=== PATIENT | male | born 1950 | race Caucasian/White ===

== ENCOUNTER 2020-08-13 14:04 | Emergency (ER) | payer MEDICARE, OTHER ==
--- NOTE | 2020-08-13 15:08 | Diagnostic Imaging Report ---
EXAMINATION: Ribs with PA chest, 5 images. COMPARISON: None. HISTORY: 70-year-old male, chest pain. Fall on left side of chest. FINDINGS: Heart size and mediastinal contours are unremarkable. There is no identified pneumothorax. There is no large pleural effusion. There is no identified focal airspace consolidation. There is no identified left sided rib fracture or significantly displaced right-sided rib fracture. IMPRESSION: 1. No identified rib fracture. 2. No identified acute cardiopulmonary abnormality. Dictated by: Dictated on workstation # [id number]
[2020-08-13] MEDS ORDERED: oxyCODONE/APAP 5/325MG (PERCOCET 5) TABLET PO ONE (15:30)
[2020-08-13] MEDS ORDERED: ACHD5005 PO (15:36)
--- NOTE | 2020-08-13 15:36 | ED General ---
General Chief Complaint: Trauma-Non Activation Stated Complaint: FALL; LT SHOULDER/RIB;HEAD INJ; RT KNEE Nursing Triage Note: Fell down two stairs. No loss of consciousness. Hit head, left shoulder, and right knee. Nursing Sepsis Screen: No Definite Risk Source of Information: Patient History of Present Illness Date Seen by Provider: Aug 13, 2020 Time Seen by Provider: 14:15 Initial Comments Patient is a 70-year-old male who presents with left-sided posterior chest wall pain after slipping down steps and right-sided knee pain. Patient fell down to bottom steps proximately 1 hour prior to ED arrival. He denies hitting his head, dizziness lightheadedness, headache or midline neck pain. Patient is not on anticoagulation therapy. Denies midline neck or back pain. Denies shortness of breath. Pain is worse with palpation and left arm movement. No abdominal pain anterior chest wall tenderness. No other acute symptoms or complaints. Timing/Duration: 1-3 Hours Severity: Moderate Modifying Factors: improves with Other Associated Systoms: Other Allergies and Home Medications Allergies Coded Allergies: prochlorperazine (Verified Allergy, Unknown, 08/13/20) Patient Home Medication List Home Medication List Reviewed: Yes Review of Systems Review of Systems Constitutional: see HPI Respiratory: see HPI Cardiovascular: see HPI Gastrointestinal: see HPI Genitourinary: see HPI Musculoskeletal: see HPI Psychiatric/Neurological: See HPI Hematologic/Lymphatic: See HPI Immunological/Allergic: see HPI All Other Systems Reviewed Negative Unless Noted: Yes Past Ypgjmjy-Mnshej-Uvpnsl Hx Patient Social History Alcohol Use: Denies Use Smoking Status: Never a Smoker 2nd Hand Smoke Exposure: No Recent Infectious Disease Expo: No Recent Hopitalizations: Yes Seasonal Allergies Seasonal Allergies: Yes Past Medical History Respiratory: No Cardiac: Yes High Cholesterol, Hypertension Neurological: No Genitourinary: No Gastrointestinal: No Musculoskeletal: No Endocrine: Yes Diabetes, Non-Insulin dep HEENT: No Cancer: No Psychosocial: No Integumentary: No Physical Exam Vital Signs Vital Signs - First Documented 08/13/20 14:10 Temp 36.5 Pulse 93 Resp 18 B/P (MAP) 164/86 (112) Pulse Ox 99 Capillary Refill : Less Than 3 Seconds Height, Weight, BMI Height: '" Weight: lbs. oz. kg; BMI Method: General Appearance: Moderate Distress HEENT: PERRL/EOMI, Pharynx Normal Neck: Full Range of Motion, Normal Inspection, Non Tender, Supple Respiratory: Chest Non Tender, Normal Breath Sounds, Other (Left upper thoracic posterior/tenderness rib pain. No subcutaneous emphysema or bony crepitus. No midline tenderness) Cardiovascular: Regular Rate, Rhythm, Other (No anterior chest wall tender) Gastrointestinal: Non Tender, Soft Extremity: Other (Abrasion right knee, no deformity. No bony tenderness. Full range of motion) Neurologic/Psychiatric: Alert, Oriented x3, No Motor/Sensory Deficits, military nurse II- XII Norm as Tested Progress/Results/Core Measures Suspected Sepsis Recent Fever Within 48 Hours: No Infection Criteria Present: None New/Unexplained Altered Menta: No Sepsis Screen: No Definite Risk SIRS Temperature: Pulse: 93 Respiratory Rate: 18 Blood Pressure 164 /86 Mean: 112 Results/Orders My Orders Orders - ISABEL JOHNSON DO Ribs/Unilateral With Chest (08/13/20 14:38) Oxycodone/Apap 5/325mg Tablet (Percocet (08/13/20 15:30) Vital Signs/I&O 08/13/20 14:10 Temp 36.5 Pulse 93 Resp 18 B/P (MAP) 164/86 (112) Pulse Ox 99 Capillary Refill : Less Than 3 Seconds Blood Pressure Mean: 112 Departure Communication (Admissions) Left-sided rib series/chest x-ray: No obvious displaced ribs or cardiopulmonary disease per radiology report Reproducible chest wall pain without bony crepitus or subcutaneous emphysema or finding of acute injury on imaging studies. Pain improved with treatment. Recommendations are watchful waiting supportive care with PCP follow-up. Return precautions reviewed. Patient verbalizes understanding agreement discharge instructions prior to departure. Impression Primary Impression: Contusion of rib on left side Disposition: HOME, SELF-CARE Condition: Stable Departure-Patient Inst. Decision time for Depature: 15:35 Referrals: GUNNAR ELLISON MD (PCP/Family) Primary Care Physician Patient Instructions: Contusion (DC) Add. Discharge Instructions: Please take ibuprofen for pain and hydrocodone as needed for additional relief. Avoid strenuous physical activity, bending and heavy lifting. Follow up with your PCP in 7 to 10 days if symptoms persist. Return to the ED if new or worsening symptoms. All discharge instructions reviewed with patient and/or family. Voiced understanding. Scripts Hydrocodone/Acetaminophen (Hydrocodone-Acetamin 5-325 mg) 1 Each Tablet 1 TAB PO Q4H PRN for PAIN-MODERATE (5-7), #20 TAB Prov: ISABEL JOHNSON DO 08/13/20 ISABEL JOHNSON DO Aug 13, 2020 15:36
[2020-08-13 15:45] VITALS: BP 135/74
== END 2020-08-13 15:45 | disposition home or self-care (01) ==
LOC: ER FS 14:08
DX: S20.222A Contusion of left back wall of thorax, initial encounter (principal); S80.211A Abrasion, right knee, initial encounter; Z88.8 Allergy status to other drugs, medicaments and biological substances; W10.8XXA Fall (on) (from) other stairs and steps, initial encounter
CPT/HCPCS: 71101

== ENCOUNTER 2020-08-25 08:00 | Inpatient (IN) | payer MEDICARE, OTHER ==
[~2020-08-25] VITALS: Ht 182.8 cm; Wt 93.7 kg
[~2020-08-25 08:00] MED LIST: ACHD5005 PO
[2020-08-25] MEDS ORDERED: ONDANSETRON 4 MG/2 ML (SDV) Z0FRAN ONE (08:23)
[2020-08-25] MEDS ORDERED: NS IV 1000 ML 1,000 ML ONE (08:23)
[2020-08-25] MEDS ORDERED: ONDANSETRON 4 MG/2 ML (SDV) Z0FRAN IVP ONE (08:30)
[2020-08-25] MEDS ORDERED: NS IV 1000 ML 1,000 ML IV SCH ×3 (08:30→12:00)
--- NOTE | 2020-08-25 08:32 | ED Respiratory ---
General Chief Complaint: Respiratory Problems Stated Complaint: VOMITING BLOOD | SOB Source: patient History of Present Illness Date Seen by Provider: Aug 25, 2020 Time Seen by Provider: 08:20 Initial Comments 70-year-old male presents with shortness of air for the past 3 days. Also states his blood sugars are running high. He is a type II diabetic but not on any medication. Last night he did have an episode of vomiting and presents with some nausea. Denies chest pain, palpitations or irregular heartbeat. Denies swelling of extremities. Denies recent illness, fever or chills or known exposure to COVID-19. Denies abdominal pain, constipation or diarrhea, dark or bloody stools. Allergies and Home Medications Allergies Coded Allergies: atorvastatin (Verified Allergy, Unknown, 08/25/20) prochlorperazine (Verified Allergy, Unknown, 08/13/20) Home Medications Hydrocodone/Acetaminophen 1 Each Tablet, 1 TAB PO Q4H PRN for PAIN-MODERATE (5- 7) Prescribed by: ISABEL JOHNSON on 08/13/20 1536 Patient Home Medication List Home Medication List Reviewed: Yes Review of Systems Review of Systems Constitutional: see HPI; No chills, No fever; malaise; No weakness Respiratory: No cough, No hemoptysis, No orthopnea, No phlegm; short of breath; No stridor, No wheezing Cardiovascular: No chest pain, No edema, No palpitations, No syncope Gastrointestinal: No abdominal pain, No constipation, No diarrhea; nausea, vomiting Genitourinary: No dysuria, No frequency, No hematuria Musculoskeletal: No back pain, No joint pain Skin: No change in color, No rash Psychiatric/Neurological: Denies Headache, Denies Numbness, Denies Paresthesia, Denies Seizure Past Unmtvpg-Elalwz-Vvgtpe Hx Past Med/Social Hx: Reviewed Nursing Past Med/Soc Hx Patient Social History 2nd Hand Smoke Exposure: No Recent Hopitalizations: Yes Seasonal Allergies Seasonal Allergies: Yes Past Medical History Respiratory: No Cardiac: Yes High Cholesterol, Hypertension Neurological: No Genitourinary: No Gastrointestinal: No Musculoskeletal: No Endocrine: Yes Diabetes, Non-Insulin dep HEENT: No Cancer: No Psychosocial: No Integumentary: No Physical Exam Vital Signs - First Documented 08/25/20 08:22 Temp 36.5 Pulse 108 Resp 30 B/P (MAP) 150/84 (106) Pulse Ox 100 O2 Delivery Room Air Capillary Refill : Height: '" Weight: lbs. oz. kg; BMI Method: General Appearance: WD/WN, no apparent distress Eyes: Bilateral Eye Normal Inspection, Bilateral Eye PERRL, Bilateral Eye EOMI HEENT: PERRL/EOMI, normal ENT inspection, TMs normal Neck: non-tender, supple, normal inspection Respiratory: chest non-tender, lungs clear, normal breath sounds, no respiratory distress Cardiovascular: no edema, no gallop, no JVD, tachycardia (sinus tach 105) Gastrointestinal: non tender, soft, no organomegaly, no pulsatile mass Extremities: non-tender, normal inspection, no pedal edema, no calf tenderness Neurologic/Psychiatric: no motor/sensory deficits, alert, normal mood/affect Skin: normal color, warm/dry Lymphatic: no adenopathy Focused Exam Lactate Level 08/25/20 08:38: Lactic Acid Level 5.21*H Lactic Acid Level Laboratory Tests Test 08/25/20 08:38 Lactic Acid Level 5.21 MMOL/L (0.50-2.00) *H Progress/Results/Core Measures Suspected Sepsis SIRS Temperature: Pulse: Respiratory Rate: Laboratory Tests 08/25/20 08:29: White Blood Count 13.5H Blood Pressure / Mean: 08/25/20 08:38: Lactic Acid Level 5.21*H Laboratory Tests 08/25/20 08:29: Creatinine 1.47H, Platelet Count 308, Total Bilirubin 0.3 Results/Orders Lab Results Laboratory Tests Test 08/25/20 08:29 08/25/20 08:38 08/25/20 08:45 Range/Units White Blood Count 13.5 H 4.3-11.0 10^3/uL Red Blood Count 5.97 H 4.35-5.85 10^6/uL Hemoglobin 16.7 13.3-17.7 G/DL Hematocrit 52 40-54 % Mean Corpuscular Volume 88 80-99 FL Mean Corpuscular Hemoglobin 28 25-34 PG Mean Corpuscular Hemoglobin Concent 32 32-36 G/DL Red Cell Distribution Width 14.6 H 10.0-14.5 % Platelet Count 308 130-400 10^3/uL Mean Platelet Volume 11.1 H 7.4-10.4 FL Immature Granulocyte % (Auto) 3 % Neutrophils (%) (Auto) 81 H 42-75 % Lymphocytes (%) (Auto) 13 12-44 % Monocytes (%) (Auto) 2 0-12 % Eosinophils (%) (Auto) 0 0-10 % Basophils (%) (Auto) 0 0-10 % Neutrophils # (Auto) 11.0 H 1.8-7.8 X 10^3 Lymphocytes # (Auto) 1.8 1.0-4.0 X 10^3 Monocytes # (Auto) 0.3 0.0-1.0 X 10^3 Eosinophils # (Auto) 0.0 0.0-0.3 10^3/uL Basophils # (Auto) 0.1 0.0-0.1 10^3/uL Immature Granulocyte # (Auto) 0.4 H 0.0-0.1 10^3/uL Sodium Level 132 L 135-145 MMOL/L Potassium Level 5.1 H 3.6-5.0 MMOL/L Chloride Level 91 L 98-107 MMOL/L Carbon Dioxide Level 7 *L 21-32 MMOL/L Anion Gap 34 H 5-14 MMOL/L Blood Urea Nitrogen 21 H 7-18 MG/DL Creatinine 1.47 H 0.60-1.30 MG/DL Estimat Glomerular Filtration Rate 47 BUN/Creatinine Ratio 14 Glucose Level 542 *H 70-105 MG/DL Calcium Level 10.0 8.5-10.1 MG/DL Corrected Calcium 8.5-10.1 MG/DL Total Bilirubin 0.3 0.1-1.0 MG/DL Aspartate Amino Transf (AST/SGOT) 11 5-34 U/L Alanine Aminotransferase (ALT/SGPT) 18 0-55 U/L Alkaline Phosphatase 79 40-136 U/L Troponin I < 0.30 <0.30 NG/ML Pro-B-Type Natriuretic Peptide 64.6 <75.0 PG/ML Total Protein 8.4 H 6.4-8.2 GM/DL Albumin 4.7 H 3.2-4.5 GM/DL Lipase 30 8-78 U/L Lactic Acid Level 5.21 *H 0.50-2.00 MMOL/L Urine Color YELLOW Urine Clarity CLEAR Urine pH 5.5 5-9 Urine Specific [place] >=1.030 1.016-1.022 Urine Protein 1+ H NEGATIVE Urine Glucose (UA) 3+ H NEGATIVE Urine Ketones 3+ H NEGATIVE Urine Nitrite NEGATIVE NEGATIVE Urine Bilirubin 1+ H NEGATIVE Urine Urobilinogen 0.2 < = 1.0 MG/DL Urine Leukocyte Esterase NEGATIVE NEGATIVE Urine RBC (Auto) 1+ H NEGATIVE Urine RBC 0-2 /HPF Urine WBC RARE /HPF Urine Squamous Epithelial Cells RARE /HPF Urine Crystals NONE /LPF Urine Bacteria NEGATIVE /HPF Urine Casts PRESENT /LPF Urine Hyaline Casts 0-2 H /LPF Urine Mucus NEGATIVE /LPF Urine Culture Indicated NO My Orders Orders - ROVENSTINE,NATHAN L DO Ed Iv/Invasive Line Start (08/25/20 08:26) Cbc With Automated Diff (08/25/20 08:26) Comprehensive Metabolic Panel (08/25/20 08:26) Lactic Acid Analyzer (08/25/20 08:26) Lipase (08/25/20 08:26) Urinalysis (08/25/20 08:26) Troponin I Fs (08/25/20 08:26) Chest 1 View Ap/Pa Only (08/25/20 08:26) Probnp Fs (08/25/20 08:26) Ondansetron Injection (Zofran Injectio (08/25/20 08:30) Ns Iv 1000 Ml (Sodium Chloride 0.9%) (08/25/20 08:30) Ondansetron Injection (Zofran Injectio (08/25/20 08:23) Ns Iv 1000 Ml (Sodium Chloride 0.9%) (08/25/20 08:23) Ekg Tracing (08/25/20 08:29) Ns Iv 1000 Ml (Sodium Chloride 0.9%) (08/25/20 09:15) Medications Given in ED Current Medications Medications Dose Ordered Sig/Maribell Route Start Time Stop Time Status Last Admin Dose Admin Ondansetron HCl 4 mg ONCE ONCE IVP 08/25/20 08:30 08/25/20 08:31 DC 08/25/20 08:33 4 MG Vital Signs/I&O 08/25/20 08:22 Temp 36.5 Pulse 108 Resp 30 B/P (MAP) 150/84 (106) Pulse Ox 100 O2 Delivery Room Air Capillary Refill : ECG Initial ECG Impression Date: Aug 25, 2020 Initial ECG Impression Time: 08:35 Initial ECG Rhythm: S.Tach Initial ECG Intervals: Normal Initial ECG Impression: Normal Departure Communication (Admissions) Time/Spoke to Admitting Phy: 09:[address] Willingham regarding pt Hx, presentation and lab findings. Stable VS w sinus tach. Treatment initiated w 2 liters NS bolus. Discussed admission and pt agreed, but immediately states "i have a ride and don't need an ambulance". Explained to pt he was pretty sick and needed to be on IV insulin and an ambulance would be required. He still refuses. Explained we would have to pull his IV and he would need his to drive him directly to [facility] for admission. He agreed. Patient signed AMA for refusal of EMS transport Impression Primary Impression: DKA, type 2 Qualified Codes: E11.10 - Type 2 diabetes mellitus with ketoacidosis without coma Disposition: 30 STILL A PATIENT Condition: Stable Admissions Decision to Admit Reason: Admit from ER (General) Decision to Admit/Date: Aug 25, 2020 Time/Decision to Admit Time: 09:00 Departure-Patient Inst. Referrals: GUNNAR ELLISON MD (PCP/Family) Primary Care Physician NATHAN NINO DO Aug 25, 2020 08:32
[2020-08-25 08:39] LABS: WHITE BLOOD COUNT 13.5 10^3/uL (4.3-11.0)
[2020-08-25 08:40] LABS: BASOPHILS # (AUTO) 0.1 10^3/uL (0.0-0.1); BASOPHILS % (AUTO) 0 % (0-10); EOSINOPHILS % (AUTO) 0 % (0-10); HEMATOCRIT 52 % (40-54); HEMOGLOBIN 16.7 G/DL (13.3-17.7); LYMPHOCYTES # (AUTO) 1.8 X 10^3 (1.0-4.0); LYMPHOCYTES % (AUTO) 13 % (12-44); MEAN CORPUSCULAR HEMOGLOBIN 28 PG (25-34); MEAN CORPUSCULAR HGB CONC 32 G/DL (32-36); MEAN CORPUSCULAR VOLUME 88 FL (80-99); MEAN PLATELET VOLUME 11.1 FL (7.4-10.4); MONOCYTES # (AUTO) 0.3 X 10^3 (0.0-1.0); MONOCYTES % (AUTO) 2 % (0-12); NEUTROPHILS % (AUTO) 81 % (42-75); PLATELET COUNT 308 10^3/uL (130-400)
[2020-08-25 09:04] LABS: CLARITY,URINE CLEAR; COLOR,URINE YELLOW; GLUCOSE, URINE (UA) 3+ (NEGATIVE); KETONES,URINE 3+ (NEGATIVE); NITRITE,URINE NEGATIVE (NEGATIVE); PH,URINE 5.5 (5-9); PROTEIN,URINE 1+ (NEGATIVE)
[2020-08-25 09:05] LABS: BACTERIA,URINE NEGATIVE /HPF; BILIRUBIN,URINE 1+ (NEGATIVE); HYALINE CASTS, URINE 0-2 /LPF; LEUKOCYTE ESTERASE ,URINE NEGATIVE (NEGATIVE); RBC,URINE 0-2 /HPF; SQUAMOUS EPITHELIAL CELL,UR RARE /HPF; WBC,URINE RARE /HPF
--- NOTE | 2020-08-25 09:12 | Diagnostic Imaging Report ---
Indication: Shortness of breath. The lungs are clear. No failure, effusion or pneumothorax. IMPRESSION: No acute appearing abnormality. Dictated by: Dictated on workstation # [id number]
[2020-08-25 09:19] LABS: BILIRUBIN,TOTAL 0.3 MG/DL (0.1-1.0); BUN/CREATININE RATIO 14; CARBON DIOXIDE 7 MMOL/L (21-32); CHLORIDE 91 MMOL/L (98-107); CREATININE SERUM 1.47 MG/DL (0.60-1.30); GFR ESTIMATED 47; GLUCOSE 542 MG/DL (70-105); POTASSIUM 5.1 MMOL/L (3.6-5.0); SODIUM 132 MMOL/L (135-145)
[2020-08-25 09:20] LABS: ALANINE AMINOTRANSFERASE 18 U/L (0-55); ALBUMIN 4.7 GM/DL (3.2-4.5); ALKALINE PHOSPHATASE 79 U/L (40-136); LIPASE 30 U/L (8-78); TOTAL PROTEIN 8.4 GM/DL (6.4-8.2)
[2020-08-25] MEDS ORDERED: 1/2 NS IV SOLUTION 1,000 ML IV ONE (11:37)
[2020-08-25] MEDS ORDERED: POTASSIUM CL 10MEQ/50ML IVPB 50 ML IV ONE (11:37)
[2020-08-25] MEDS: 1/2 NS IV SOLUTION 1,000 ML IV SCH ×3 (12:42→20:20)
[2020-08-25] MEDS: POTASSIUM CL 10MEQ/50ML IVPB 50 ML IV SCH ×6 (12:43→22:40)
--- NOTE | 2020-08-25 13:37 | History & Physical ---
HPI History of Present Illness: 70 yo male came to ER due to feeling weak, tired and fatigued and vomiting. He states has been feeling poorly for a couple of months, but much worse in the last week and started with nausea and vomiting last night. He does have abdominal pain for the last week as well. He denies fever. He has diabetes and takes metformin only and says he has not been out and has been taking regularly. He has had high blood sugar before but never required hospitalization for it. Source: patient Date seen by provider: Aug 25, 2020 Time Seen by Provider: 12:45 Attending Physician Deyanira Killian MD PCP Luis Alberto Melton MD Consult Date of Admission Aug 25, 2020 at 11:39 Home Medications Home Medications Reviewed patient Home Medication Reconciliation performed by pharmacy medication reconciliations transfill technician and/or nursing. Patients Allergies have been reviewed. Allergies Coded Allergies: atorvastatin (Verified Allergy, Unknown, 08/25/20) prochlorperazine (Verified Allergy, Unknown, 08/13/20) XNS-[id number]-Ljjlsk Hx Patient Social History Smoking Status: Former Smoker 2nd Hand Smoke Exposure: No Recent Hopitalizations: Yes Alcohol Use?: No Have you traveled recently?: No Past Medical History PMHx: HTN DMII Review of Systems ([facility]) Constitutional: No fever EENTM: No nose congestion, No throat pain Respiratory: No cough; short of breath Cardiovascular: No chest pain Gastrointestinal: abdominal pain, constipation; No diarrhea; nausea, vomiting Genitourinary: No dysuria Musculoskeletal: No joint pain Skin: No rash Reviewed Test Results Reviewed Test Results Lab Laboratory Tests Test 08/25/20 08:29 08/25/20 08:38 08/25/20 08:45 08/25/20 11:50 Range/Units White Blood Count 13.5 H 4.3-11.0 10^3/uL Red Blood Count 5.97 H 4.35-5.85 10^6/uL Hemoglobin 16.7 13.3-17.7 G/DL Hematocrit 52 40-54 % Mean Corpuscular Volume 88 80-99 FL Mean Corpuscular Hemoglobin 28 25-34 PG Mean Corpuscular Hemoglobin Concent 32 32-36 G/DL Red Cell Distribution Width 14.6 H 10.0-14.5 % Platelet Count 308 130-400 10^3/uL Mean Platelet Volume 11.1 H 7.4-10.4 FL Immature Granulocyte % (Auto) 3 % Neutrophils (%) (Auto) 81 H 42-75 % Lymphocytes (%) (Auto) 13 12-44 % Monocytes (%) (Auto) 2 0-12 % Eosinophils (%) (Auto) 0 0-10 % Basophils (%) (Auto) 0 0-10 % Neutrophils # (Auto) 11.0 H 1.8-7.8 X 10^3 Lymphocytes # (Auto) 1.8 1.0-4.0 X 10^3 Monocytes # (Auto) 0.3 0.0-1.0 X 10^3 Eosinophils # (Auto) 0.0 0.0-0.3 10^3/uL Basophils # (Auto) 0.1 0.0-0.1 10^3/uL Immature Granulocyte # (Auto) 0.4 H 0.0-0.1 10^3/uL Sodium Level 132 L 135-145 MMOL/L Potassium Level 5.1 H 3.6-5.0 MMOL/L Chloride Level 91 L 98-107 MMOL/L Carbon Dioxide Level 7 *L 21-32 MMOL/L Anion Gap 34 H 5-14 MMOL/L Blood Urea Nitrogen 21 H 7-18 MG/DL Creatinine 1.47 H 0.60-1.30 MG/DL Estimat Glomerular Filtration Rate 47 BUN/Creatinine Ratio 14 Glucose Level 542 *H 70-105 MG/DL Calcium Level 10.0 8.5-10.1 MG/DL Corrected Calcium 8.5-10.1 MG/DL Total Bilirubin 0.3 0.1-1.0 MG/DL Aspartate Amino Transf (AST/SGOT) 11 5-34 U/L Alanine Aminotransferase (ALT/SGPT) 18 0-55 U/L Alkaline Phosphatase 79 40-136 U/L Troponin I < 0.30 <0.30 NG/ML Pro-B-Type Natriuretic Peptide 64.6 <75.0 PG/ML Total Protein 8.4 H 6.4-8.2 GM/DL Albumin 4.7 H 3.2-4.5 GM/DL Lipase 30 8-78 U/L Lactic Acid Level 5.21 *H 0.50-2.00 MMOL/L Urine Color YELLOW Urine Clarity CLEAR Urine pH 5.5 5-9 Urine Specific [place] >=1.030 1.016-1.022 Urine Protein 1+ H NEGATIVE Urine Glucose (UA) 3+ H NEGATIVE Urine Ketones 3+ H NEGATIVE Urine Nitrite NEGATIVE NEGATIVE Urine Bilirubin 1+ H NEGATIVE Urine Urobilinogen 0.2 < = 1.0 MG/DL Urine Leukocyte Esterase NEGATIVE NEGATIVE Urine RBC (Auto) 1+ H NEGATIVE Urine RBC 0-2 /HPF Urine WBC RARE /HPF Urine Squamous Epithelial Cells RARE /HPF Urine Crystals NONE /LPF Urine Bacteria NEGATIVE /HPF Urine Casts PRESENT /LPF Urine Hyaline Casts 0-2 H /LPF Urine Mucus NEGATIVE /LPF Urine Culture Indicated NO Glucometer 509 *H 70-110 MG/DL Radiology CXR 08/25 unremarkable Physical Exam-([facility]) Physical Exam Vital Signs VS - Last 72 Hours, by Label 08/25/20 08/25/20 08/25/20 08/25/20 08:22 10:15 12:00 12:00 Temp 36.5 36.1 Pulse 108 106 105 Resp 30 24 31 B/P (MAP) 150/84 (106) 149/56 177/109 (131) Pulse Ox 100 100 100 100 O2 Delivery Room Air Room Air Room Air Room Air 08/25/20 12:56 Pulse 107 Capillary Refill : Less Than 3 Seconds General Appearance: WD/WN, mild distress Respiratory: lungs clear, normal breath sounds, accessory muscle use Cardiovascular: no murmur, tachycardia Gastrointestinal: normal bowel sounds, non tender, soft Extremities: no pedal edema Neurologic/Psychiatric: alert, normal mood/affect Skin: normal color, warm/dry Assessment/Plan Assessment/Plan Admission Status: Inpatient Order (span 2 midnights) Reason for Inpatient Admission: DKA (1) DKA, type 2 Status: Acute Assessment & Plan: DKA protocol, insulin drip. Qualifiers: Qualified Codes: E11.10 - Type 2 diabetes mellitus with ketoacidosis without coma (2) Hypertension Status: Chronic Assessment & Plan: Resume home lisinopril when creatinine improved. Qualifiers: Qualified Codes: I10 - Essential (primary) hypertension (3) Diabetes mellitus, type 2 Status: Chronic Qualifiers: Qualified Codes: E11.65 - Type 2 diabetes mellitus with hyperglycemia (4) Acute renal insufficiency Status: Acute Assessment & Plan: Dehydration from DKA, IVF and monitor. (5) Hyperkalemia Status: Acute Assessment & Plan: Due to volume depletion/DKA. Anticipate dropping with insulin and IVF. (6) High anion gap metabolic acidosis Status: Acute Assessment & Plan: Due to ketoacidosis (7) Hyponatremia Status: Acute Assessment & Plan: Pseudohyponatremia due to hyperglycemia. (8) DVT prophylaxis Status: Acute Assessment & Plan: Enoxaparin GALO GUZMAN MD Aug 25, 2020 13:37
[2020-08-25] MEDS ORDERED: LORazepam INJ 2 MG/ML (ATIVAN) VIAL ONE (13:58)
[2020-08-25] MEDS ORDERED: LORazepam INJ 2 MG/ML (ATIVAN) VIAL IVP PRN (14:15)
--- NOTE | 2020-08-25 14:47 | Diagnostic Imaging Report ---
INDICATION: Central line placement Frontal chest obtained at 2:30 p.m. and compared to same day at 8:35 a.m. There is a left subclavian central venous catheter tip overlying the junction of left innominate vein and SVC. There is no focal infiltrate or pneumothorax or pleural fluid. IMPRESSION: No acute process in the chest. New left subclavian central catheter as above. There is no pneumothorax following line placement. Dictated by: Dictated on workstation # [id number]
[2020-08-25] MEDS: PANTOPRAZOLE 40 MG (PROTONIX) VIAL IV SCH (14:58)
[2020-08-25] MEDS: ENOXAPARIN 40 MG/0.4 ML (LOVENOX) SYR SQ SCH (14:58)
--- NOTE | 2020-08-25 15:00 | CONSULTATION REPORT ---
DATE OF SERVICE: 08/25/2020 ADMITTING PHYSICIAN: Chanelle Willingham MD ATTENDING PRIMARY CARE PHYSICIAN: Luis Alberto Melton MD INDICATIONS: The patient is a 70-year-old male who came into [facility] with fatigue as well as nausea and vomiting. He states that he has been feeling poorly for the past few months, but has been worse in the last week and then developed a lot of nausea without vomiting last night. He does have a history of diabetes; however, does not report taking insulin for this. He was found to have a blood glucose of 542 and ketones in his urine consistent with a diabetic ketoacidosis. PAST MEDICAL HISTORY: Diabetes, hypertension, hypercholesterolemia. PAST SURGICAL HISTORY: None known. ALLERGIES: ATORVASTATIN AND PROCHLORPERAZINE. MEDICATIONS: Oral hypoglycemic statin. SOCIAL HISTORY: Previous smoke, quit many years ago. Negative alcohol. FAMILY HISTORY: Noncontributory. VITAL SIGNS: Temperature 36.1, blood pressure 146/97, pulse 100, respirations 34, pulse ox 100% on room air. REVIEW OF SYSTEMS: Well-nourished male currently in no acute distress. He is not experiencing any shortness of breath or difficulty breathing. No chest pain, palpitations, diaphoresis. Intermittent episodes of nausea and vomiting for the past day. No hematemesis, no coffee ground emesis. No known diarrhea or constipation, no red blood per rectum, no dark tarry stools. No fever, chills. No recent inadvertent weight loss. All other review of systems negative. PHYSICAL EXAMINATION: CHEST: Clear. Good breath sounds bilaterally. HEART: Regular, no murmurs. EXTREMITIES: No lower extremity edema, negative Homans sign. HEENT: No scleral icterus, no cervical lymphadenopathy. ABDOMEN: Soft, nontender, nondistended. SKIN: Warm, dry. LABORATORY DATA: WBC 13.5, hemoglobin 16.7, hematocrit 52, platelets 308. BUN 21, creatinine 1.47, glucose 542. ASSESSMENT AND PLAN: A 70-year-old male in diabetic ketoacidosis with poor peripheral venous circulation and we will require a central venous catheter for IV hydration as well as insulin drip as well as other pharmacotherapy. Job ID: [id number] DocumentID: [id number] Dictated Date: 08/25/2020 14:28:49 Reconnaissance Crewmember Date: 08/25/2020 15:00:04 Dictated By: SANDY GALDAMEZ MD
[2020-08-25 15:08] LABS: HEMOGLOBIN 14.5 g/dL (13.3-17.7); MEAN PLATELET VOLUME 11.3 fL (9.0-12.2); WHITE BLOOD COUNT 17.8 10^3/uL (4.3-11.0)
[2020-08-25] MEDS ORDERED: LISI2.5T PO (15:13)
[2020-08-25] MEDS ORDERED: METF-397 PO (15:13)
[2020-08-25] MEDS ORDERED: SIMV40TA25 PO (15:13)
[2020-08-25] MEDS ORDERED: ACET-2267 PO (15:13)
[2020-08-25] MEDS ORDERED: ACHD5005 PO (15:13)
[2020-08-25] MEDS ORDERED: CARV6.252 PO (15:13)
[2020-08-25 15:20] LABS: CHLORIDE 105 MMOL/L (98-107); POTASSIUM 5.2 MMOL/L (3.6-5.0); SODIUM 133 MMOL/L (135-145)
[2020-08-25 15:21] LABS: CALCIUM 8.3 MG/DL (8.5-10.1)
[2020-08-25 15:26] LABS: CREATININE SERUM 2.01 MG/DL (0.60-1.30); GFR ESTIMATED 33
[2020-08-25 15:27] LABS: BUN/CREATININE RATIO 11
[2020-08-25 15:29] LABS: CARBON DIOXIDE < 5 MMOL/L (21-32); GLUCOSE 549 MG/DL (70-105)
[2020-08-25] MEDS ORDERED: cefTRIAXone FOR IV USE 2,000 MG in WATER (STERILE) FOR INJECTION 20 ML IV NR (15:45)
[2020-08-25 15:57] LABS: ABG BASE EXCESS -27.1 MMOL/L (-2.5-2.5); ABG OXYGEN SATURATION 99 % (94-100); ABG PO2 170 MMHG (79-93)
[2020-08-25 15:59] LABS: ABG PCO2 12 MMHG (35-45); ABG PH 6.97 (7.37-7.43)
[2020-08-25 16:00] LABS: ALLENS TEST YES-POS; INSPIRED O2 2 L; PATIENT TEMP 37.2; VENTILATOR NO
[2020-08-25] MEDS ORDERED: SODIUM BICARB 8.4% 50 MEQ/50 ML VIAL IV NR ×2 (16:15→18:00)
[2020-08-25 17:37] LABS: ABG OXYGEN SATURATION 99 % (94-100); ABG PO2 134 MMHG (79-93); ABG TCO2 6.6 MMOL/L (21.0-31.0)
[2020-08-25 17:39] LABS: ABG PCO2 17 MMHG (35-45); ABG PH 7.17 (7.37-7.43)
[2020-08-25 17:40] LABS: INSPIRED O2 4 L; PATIENT TEMP 37.1; VENTILATOR NO
[2020-08-25 17:50] LABS: POTASSIUM 4.2 MMOL/L (3.6-5.0)
[2020-08-25 17:51] LABS: CALCIUM 7.3 MG/DL (8.5-10.1)
[2020-08-25 17:55] LABS: CREATININE SERUM 1.73 MG/DL (0.60-1.30)
[2020-08-25] MEDS ORDERED: SODIUM BICARBONATE 8.4% VIAL 100 MEQ in 1/2 NS IV SOLUTION 1,000 ML IV SCH (18:00)
[2020-08-25 20:06] LABS: CALCIUM 7.2 MG/DL (8.5-10.1); CREATININE SERUM 1.81 MG/DL (0.60-1.30); POTASSIUM 3.5 MMOL/L (3.6-5.0)
--- NOTE | 2020-08-25 20:49 | OPERATIVE REPORT ---
DATE OF SERVICE: 08/25/2020 ADMITTING PHYSICIAN: Chanelle Willingham MD PRIMARY CARE PHYSICIAN: Luis Alberto Melton MD PREPROCEDURE DIAGNOSIS: Diabetic ketoacidosis. POSTPROCEDURE DIAGNOSIS: Diabetic ketoacidosis. PROCEDURE: Placement of left subclavian central venous catheter. SURGEON: Sandy Galdamez MD ANESTHESIA: Local. ESTIMATED BLOOD LOSS: Minimal. FINDINGS: Catheter tip at superior vena caval -- right atrial junction. DISPOSITION: The patient tolerated the procedure well. INDICATIONS: The patient is a 70-year-old male who presented to the Emergency Department with weakness and fatigue as well as development of nausea and vomiting. He states for the past two months, he has felt not well; however, this has worsened in the past week. He was found to have a severely elevated blood glucose in the 550 range as well as ketones in his urine consistent with diabetic ketoacidosis. Multiple attempts were attempted for placement of IV access as well as PICC line; however, he has poor peripheral venous circulation. DESCRIPTION OF PROCEDURE: The chest and neck were prepped and draped in standard surgical fashion. A 1% lidocaine was then used to anesthetize the left subclavian region. Left subclavian vein was then cannulated with drawing of venous blood. The guidewire was then inserted without any resistance. The cannulating needle removed and a skin incision made using a 11 blade. A tract was then created using a venous dilator and through this opening, a triple lumen central venous catheter was placed over the guidewire using the Seldinger technique. All three ports tracy venous blood and saline pushed in without any resistance. The catheter was then sutured to the skin using 3-0 silk suture. Skin and catheter were then cleaned and covered with Op-Site. The patient tolerated the procedure well. We will get a post-procedure chest x-ray. Job ID: [id number] DocumentID: [id number] Dictated Date: 08/25/2020 14:31:22 Passenger Car Conductor Date: 08/25/2020 20:48:43 Dictated By: SANDY GALDAMEZ MD
[2020-08-25] MEDS: D5 1/2 NS 1000 ML IV SOLUTION 1,000 ML IV SCH (22:41)
[2020-08-25 22:45] LABS: ABG BASE EXCESS -6.4 MMOL/L (-2.5-2.5); ABG OXYGEN SATURATION 98 % (94-100); ABG PCO2 28 MMHG (35-45); ABG PH 7.41 (7.37-7.43); ABG PO2 82 MMHG (79-93); ABG TCO2 18.3 MMOL/L (21.0-31.0)
[2020-08-25 22:48] LABS: ALLENS TEST YES-POS; INSPIRED O2 ROOM AIR; PATIENT TEMP 36.4; VENTILATOR NO
[2020-08-25 22:53] LABS: POTASSIUM 3.4 MMOL/L (3.6-5.0)
[2020-08-25 22:54] LABS: CALCIUM 7.2 MG/DL (8.5-10.1)
[2020-08-25 22:59] LABS: CREATININE SERUM 1.53 MG/DL (0.60-1.30)
[2020-08-26] MEDS: POTASSIUM CL 10MEQ/50ML IVPB 50 ML IV SCH ×10 (00:37→23:26)
[2020-08-26] MEDS: 1/2 NS IV SOLUTION 1,000 ML IV SCH ×3 (02:41→07:41)
[2020-08-26 03:51] LABS: BASOPHILS % (AUTO) 0 % (0-10); EOSINOPHILS % (AUTO) 0 % (0-10); HEMATOCRIT 31 % (40-54); HEMOGLOBIN 10.8 g/dL (13.3-17.7); LYMPHOCYTES # (AUTO) 0.7 10^3/uL (1.0-4.0); LYMPHOCYTES % (AUTO) 9 % (12-44); MEAN CORPUSCULAR HEMOGLOBIN 28 pg (25-34); MEAN CORPUSCULAR HGB CONC 35 g/dL (32-36); MEAN CORPUSCULAR VOLUME 82 fL (80-99); MONOCYTES # (AUTO) 1.2 10^3/uL (0.0-1.0); MONOCYTES % (AUTO) 15 % (0-12); NEUTROPHILS % (AUTO) 76 % (42-75); PLATELET COUNT 157 10^3/uL (130-400)
[2020-08-26] MEDS: D5 1/2 NS 1000 ML IV SOLUTION 1,000 ML IV SCH (03:57)
[2020-08-26 04:02] LABS: CALCIUM 7.2 MG/DL (8.5-10.1)
[2020-08-26 04:07] LABS: CREATININE SERUM 1.33 MG/DL (0.60-1.30)
[2020-08-26 04:09] LABS: MAGNESIUM 1.7 MG/DL (1.6-2.4)
[2020-08-26 04:14] LABS: ABG BASE EXCESS -2.8 MMOL/L (-2.5-2.5); ABG OXYGEN SATURATION 96 % (94-100); ABG PCO2 33 MMHG (35-45); ABG PH 7.42 (7.37-7.43); ABG PO2 69 MMHG (79-93); ABG TCO2 22.2 MMOL/L (21.0-31.0)
[2020-08-26 04:18] LABS: ALLENS TEST YES-POS; INSPIRED O2 ROOM AIR; PATIENT TEMP 36.2; VENTILATOR NO
[2020-08-26 04:19] LABS: PHOSPHORUS 0.7 MG/DL (2.3-4.7)
[2020-08-26] MEDS: MAGNESIUM 1 GM/100 ML IVPB 100 ML IV SCH ×2 (04:42→05:33)
--- NOTE | 2020-08-26 05:22 | Pulmonary Consultation ---
History of Present Illness History of Present Illness Date Seen by Provider: Aug 26, 2020 Time Seen by Provider: 05:17 Date of Admission Allergies and Home Medications Allergies Coded Allergies: atorvastatin (Verified Allergy, Unknown, 08/25/20) prochlorperazine (Verified Allergy, Unknown, 08/13/20) Home Medications Acetaminophen 500 Mg Tablet, 500-1,000 MG PO Q8H PRN for PAIN-MILD (1-4), (Reported) Carvedilol 6.25 Mg Tablet, 6.25 MG PO 1800, (Reported) Hydrocodone/Acetaminophen 1 Each Tablet, 1 TAB PO Q4H PRN for PAIN-MODERATE (5- 7), (Reported) Lisinopril 2.5 Mg Tablet, 2.5 MG PO 1800, (Reported) Metformin HCl 500 Mg Tablet, 500 MG PO 1800, (Reported) Simvastatin 40 Mg Tablet, 40 MG PO 1800, (Reported) Past Pigkwum-Cjvqhu-Uivhko Hx Past Med/Social Hx: Reviewed Nursing Past Med/Soc Hx Patient Social History Alcohol Use: Denies Use Smoking Status: Former Smoker 2nd Hand Smoke Exposure: No Recent Infectious Disease Expo: No Recent Hopitalizations: Yes Have you traveled recently?: No Alcohol Use?: No Seasonal Allergies Seasonal Allergies: Yes Past Medical History Surgeries: No Respiratory: No Cardiac: Yes High Cholesterol, Hypertension Neurological: No Genitourinary: No Gastrointestinal: No Musculoskeletal: No Endocrine: Yes Diabetes, Non-Insulin dep HEENT: No Cancer: No Psychosocial: No Integumentary: No Review of Systems Time Seen by Provider: 05:21 Sepsis Event Evaluation Height, Weight, BMI Height: '" Weight: lbs. oz. kg; 23.76 BMI Method: Exam Exam Vital Signs Date Time Temp Pulse Resp B/P (MAP) Pulse Ox O2 Delivery O2 Flow Rate FiO2 08/26/20 04:03 36.2 16 Room Air 08/26/20 04:03 98 Room Air 08/26/20 02:00 18 Room Air 08/26/20 01:00 90 08/26/20 01:00 16 08/26/20 01:00 93 110/61 (77) 95 Room Air 08/26/20 00:00 98 Room Air 08/26/20 00:00 18 08/26/20 00:00 93 120/61 (80) 97 Room Air 08/25/20 23:00 36.4 Room Air 08/25/20 23:00 93 20 08/25/20 23:00 93 118/64 (82) 97 Room Air 08/25/20 22:00 96 105/67 (80) 96 Room Air 08/25/20 22:00 22 08/25/20 21:00 25 08/25/20 21:00 96 116/64 (81) 96 Room Air 08/25/20 20:00 105 26 120/71 (87) 100 Room Air 08/25/20 20:00 98 Room Air 08/25/20 19:36 36.6 08/25/20 19:00 109 08/25/20 19:00 36.4 Room Air 08/25/20 19:00 112 21 99/62 (74) 100 Room Air 08/25/20 18:00 102 23 95/66 (76) 100 Nasal Cannula 2.00 08/25/20 17:00 112 25 105/65 (78) 100 Nasal Cannula 2.00 08/25/20 16:00 100 Room Air 08/25/20 16:00 107 28 106/83 (91) 100 Nasal Cannula 2.00 08/25/20 15:39 35.9 08/25/20 15:00 108 35 102/41 (61) 100 Nasal Cannula 2.00 08/25/20 14:57 37.3 08/25/20 14:00 115 34 146/97 (113) 100 Nasal Cannula 2.00 08/25/20 13:00 105 31 100 Nasal Cannula 2.00 08/25/20 12:56 107 08/25/20 12:00 100 Room Air 08/25/20 12:00 105 31 177/109 (131) 100 Nasal Cannula 2.00 08/25/20 10:15 36.1 106 24 149/56 100 Room Air 08/25/20 08:22 36.5 108 30 150/84 (106) 100 Room Air I & O 08/26/20 07:00 Intake Total 8105 ml Output Total 1525 ml Balance 6580 ml Height & Weight Height: '" Weight: lbs. oz. kg; 23.76 BMI Method: Capillary Refill: Less Than 3 Seconds Gastrointestinal: normal bowel sounds, non tender, soft Results Lab Laboratory Tests 08/25/20 08:29 08/25/20 14:40 08/25/20 17:30 08/25/20 19:40 08/25/20 22:30 08/26/20 03:30 Assessment/Plan Assessment/Plan DKA -Gap is now closed. start 10units Levemir then 2hrs after change D/C. -Change 1/2 NS to LR at 100ml/hr HTN Acute renal failure -IMproving RAEANN VINES DO Aug 26, 2020 05:22
[2020-08-26] MEDS: KCL 20 MEQ TAB (K-DUR) PO SCH (05:33)
[2020-08-26] MEDS ORDERED: POTASSIUM CL 10MEQ/50ML IVPB 50 ML IV SCH (06:00)
[2020-08-26] MEDS ORDERED: MAGNESIUM 1 GM/100 ML IVPB 100 ML IV SCH (06:00)
[2020-08-26] MEDS ORDERED: POTASSIUM PHOSPHATE INJ 15 MM in NS (IVPB) 250 ML IV ONE (06:30)
[2020-08-26] MEDS: LACTATED RINGERS 1,000 ML IV SCH ×2 (07:40→17:23)
--- NOTE | 2020-08-26 07:41 | Diagnostic Imaging Report ---
INDICATION: Dyspnea. TECHNIQUE: Single view chest 2:09 AM. CORRELATION STUDY: 08/25/2020 FINDINGS: Left subclavian central line tip over the high SVC, stable. Heart size unchanged given significant differences in imaging technique. Vasculature, however, may be slightly more prominent. Lung haynes overall are hypoventilated with some crowding at the lung bases. Overt infiltrate not suggested. IMPRESSION: 1. Significant severity hypoventilation on this study. This results in likely crowding with atelectasis at the lung bases. Dictated by: Dictated on workstation # [id number]
[2020-08-26] MEDS: PANTOPRAZOLE 40 MG (PROTONIX) VIAL IV SCH (08:32)
[2020-08-26] MEDS ORDERED: SODIUM PHOSPHATE INJ 30 MM in NS (IVPB) 250 ML INJ ONE (09:00)
[2020-08-26] MEDS ORDERED: inSUlin ASPART (NovoLOG) 1 UNIT/0.01 ML (CHARGE PER UNIT) SC SCH (10:45)
[2020-08-26] MEDS: inSUlin ASPART (NovoLOG) 1 UNIT/0.01 ML (CHARGE PER UNIT) SC SCH ×3 (11:57→23:34)
[2020-08-26] MEDS ORDERED: ACETAMINOPHEN 500 MG TAB (TYLENOL) PO PRN (12:15)
--- NOTE | 2020-08-26 12:43 | Progress Note - Hospitalist ---
Subjective HPI/CC On Admission Date Seen by Provider: Aug 26, 2020 Time Seen by Provider: 12:30 Subjective/Events-last exam Patient seems lethargic and slow to talk today he appears to be sleepy and complains of months recently of fatigue and shortness of breath. Wonders if he has tropical sprue again. He is out of DKA this morning and the get his gap is closed but his blood sugars are beginning to rise again. Does complain of some abdominal discomfort Review of Systems Neurological: Weakness Focused Exam Lactate Level 08/25/20 16:30: Lactic Acid Level 2.17*H 08/25/20 19:40: Lactic Acid Level 3.49*H 08/25/20 22:30: Lactic Acid Level 1.31 Objective Exam Vital Signs Vital Signs Date Time Temp Pulse Resp B/P (MAP) Pulse Ox O2 Delivery O2 Flow Rate FiO2 08/27/20 08:58 36.6 08/27/20 08:00 97 Room Air 08/27/20 08:00 73 13 121/82 (95) 08/25/20 18:00 2.00 Capillary Refill : Less Than 3 Seconds General Appearance: Other (Lethargic) Neck: Non Tender Respiratory: Lungs Clear, Normal Breath Sounds, No Accessory Muscle Use, No Respiratory Distress Cardiovascular: Regular Rate, Rhythm, No Gallop, No Murmur Gastrointestinal: Normal Bowel Sounds, Soft, Tenderness Extremity: No Pedal Edema Results/Procedures Lab Laboratory Tests 08/26/20 14:57 08/26/20 19:58 08/27/20 03:39 Patient resulted labs reviewed. Assessment/Plan Assessment and Plan Assess & Plan/Chief Complaint Diabetic ketoacidosis resolving 2 diabetes historically now with evidence of transition to insulin requiring Fatigue and weight loss most likely secondary to diabetes [id number] Plan to check thyroid functions We will DC Goodwin catheter and increase activity JUDITH CEJA MD Aug 26, 2020 12:43
[2020-08-26] MEDS: ENOXAPARIN 40 MG/0.4 ML (LOVENOX) SYR SQ SCH (14:47)
[2020-08-26] MEDS ORDERED: cefTRIAXone FOR IV USE 1,000 MG in WATER (STERILE) FOR INJECTION 10 ML IV SCH (15:00)
[2020-08-26 15:21] LABS: BUN/CREATININE RATIO 8; CARBON DIOXIDE 18 MMOL/L (21-32); CHLORIDE 104 MMOL/L (98-107); CREATININE SERUM 1.16 MG/DL (0.60-1.30); GFR ESTIMATED > 60; GLUCOSE 304 MG/DL (70-105); POTASSIUM 3.5 MMOL/L (3.6-5.0); SODIUM 132 MMOL/L (135-145)
[2020-08-26] MEDS ORDERED: inSUlin ASPART (NovoLOG) 1 UNIT/0.01 ML (CHARGE PER UNIT) SC ONE (15:30)
[2020-08-26] MEDS: SIMvastatin 40 MG (ZOCOR) TAB PO SCH (17:45)
[2020-08-26] MEDS: lisINopril 5 MG (PRINIVIL) TABLET PO SCH (17:45)
[2020-08-26] MEDS: CARVEDILOL 6.25 MG (COREG) TAB PO SCH (17:45)
[2020-08-26 20:21] LABS: BUN/CREATININE RATIO 7; CALCIUM 7.2 MG/DL (8.5-10.1); CARBON DIOXIDE 21 MMOL/L (21-32); CHLORIDE 105 MMOL/L (98-107); CREATININE SERUM 1.03 MG/DL (0.60-1.30); GFR ESTIMATED > 60; GLUCOSE 221 MG/DL (70-105); POTASSIUM 3.2 MMOL/L (3.6-5.0); SODIUM 135 MMOL/L (135-145)
[2020-08-26 20:24] LABS: MAGNESIUM 2.3 MG/DL (1.6-2.4); PHOSPHORUS 1.3 MG/DL (2.3-4.7)
[2020-08-27] MEDS: POTASSIUM CL 10MEQ/50ML IVPB 50 ML IV SCH ×2 (00:30→01:50)
[2020-08-27] MEDS: LACTATED RINGERS 1,000 ML IV SCH (00:30)
[2020-08-27 03:57] LABS: BASOPHILS % (AUTO) 0 % (0-10); EOSINOPHILS % (AUTO) 0 % (0-10); HEMATOCRIT 30 % (40-54); LYMPHOCYTES # (AUTO) 0.9 10^3/uL (1.0-4.0); LYMPHOCYTES % (AUTO) 19 % (12-44); MEAN CORPUSCULAR HEMOGLOBIN 28 pg (25-34); MEAN CORPUSCULAR HGB CONC 34 g/dL (32-36); MEAN CORPUSCULAR VOLUME 83 fL (80-99); MEAN PLATELET VOLUME 10.3 fL (9.0-12.2); MONOCYTES # (AUTO) 0.7 10^3/uL (0.0-1.0); MONOCYTES % (AUTO) 14 % (0-12); NEUTROPHILS # (AUTO) 3.3 10^3/uL (1.8-7.8); NEUTROPHILS % (AUTO) 67 % (42-75); PLATELET COUNT 113 10^3/uL (130-400); WHITE BLOOD COUNT 4.9 10^3/uL (4.3-11.0)
[2020-08-27 04:08] LABS: CHLORIDE 106 MMOL/L (98-107)
[2020-08-27 04:09] LABS: POTASSIUM 3.6 MMOL/L (3.6-5.0); SODIUM 136 MMOL/L (135-145)
[2020-08-27 04:10] LABS: CALCIUM 7.2 MG/DL (8.5-10.1); GLUCOSE 162 MG/DL (70-105)
[2020-08-27 04:12] LABS: CARBON DIOXIDE 24 MMOL/L (21-32)
[2020-08-27 04:14] LABS: CREATININE SERUM 0.86 MG/DL (0.60-1.30); GFR ESTIMATED > 60
[2020-08-27 04:15] LABS: BUN/CREATININE RATIO 6
[2020-08-27 04:16] LABS: MAGNESIUM 2.3 MG/DL (1.6-2.4)
--- NOTE | 2020-08-27 05:11 | Pulmonary Progress Note ---
Subjective Time Seen by a Provider: 05:09 Subjective/Events-last exam No complications noted. Sepsis Event Evaluation Height, Weight, BMI Height: '" Weight: lbs. oz. kg; 23.76 BMI Method: Focused Exam Lactate Level 08/25/20 16:30: Lactic Acid Level 2.17*H 08/25/20 19:40: Lactic Acid Level 3.49*H 08/25/20 22:30: Lactic Acid Level 1.31 Exam Exam Vital Signs Date Time Temp Pulse Resp B/P (MAP) Pulse Ox O2 Delivery O2 Flow Rate FiO2 08/27/20 04:36 97 Room Air 08/27/20 04:00 85 25 145/75 (98) 97 Room Air 08/27/20 03:49 36.9 08/27/20 03:00 84 26 99/60 (73) 95 Room Air 08/27/20 02:00 87 26 119/69 (86) 96 Room Air 08/27/20 01:00 84 27 114/68 (83) 96 Room Air 08/27/20 00:12 84 08/27/20 00:09 97 Room Air 08/27/20 00:00 86 18 126/74 (91) 97 Room Air 08/26/20 23:36 36.8 08/26/20 23:00 83 25 112/70 (84) 94 Room Air 08/26/20 22:00 96 21 127/68 (87) 96 Room Air 08/26/20 21:00 87 108/64 (79) 97 Room Air 08/26/20 20:08 37.2 89 18 96/61 (73) 96 Room Air 08/26/20 20:00 97 Room Air 08/26/20 20:00 89 96/61 (73) 97 Room Air 08/26/20 19:00 92 08/26/20 19:00 92 106/68 (81) 97 Room Air 08/26/20 18:00 96 128/71 (90) 99 Room Air 08/26/20 17:00 98 141/85 (103) 99 Room Air 08/26/20 16:00 92 120/65 (83) 96 Room Air 08/26/20 15:27 37.0 08/26/20 15:00 90 126/68 (87) 97 Room Air 08/26/20 14:00 95 109/67 (81) 96 Room Air 08/26/20 13:00 98 08/26/20 13:00 98 122/56 (78) 97 Room Air 08/26/20 12:00 97 Room Air 08/26/20 12:00 92 130/69 (89) 98 Room Air 08/26/20 11:37 36.7 08/26/20 11:00 88 116/68 (84) 96 Room Air 08/26/20 10:00 89 117/65 (82) 95 Room Air 08/26/20 09:00 90 111/61 (78) 94 Room Air 08/26/20 08:30 96 Room Air 08/26/20 08:00 89 117/62 (80) 96 Room Air 08/26/20 07:34 36.6 08/26/20 07:00 85 119/67 (84) 95 Room Air 08/26/20 07:00 85 08/26/20 06:00 86 103/63 (76) 95 Room Air I & O 08/27/20 07:00 Intake Total 5340 ml Output Total 2575 ml Balance 2765 ml Height & Weight Height: '" Weight: lbs. oz. kg; 23.76 BMI Method: General Appearance: No Apparent Distress, WD/WN, Other (Lethargic) HEENT: PERRL/EOMI Neck: Non Tender Respiratory: Lungs Clear, Normal Breath Sounds, No Accessory Muscle Use, No Respiratory Distress Cardiovascular: Regular Rate, Rhythm, No Gallop, No Murmur Capillary Refill: Less Than 3 Seconds Gastrointestinal: normal bowel sounds, non tender, soft Extremity: No Pedal Edema Neurologic/Psychiatric: Alert, Oriented x3 Skin: Normal Color, Warm/Dry Lymphatic: No Adenopathy Results Lab Laboratory Tests 08/25/20 08:29 08/25/20 14:40 08/25/20 17:30 08/25/20 19:40 08/25/20 22:30 08/26/20 03:30 08/26/20 14:57 08/26/20 19:58 08/27/20 03:39 Assessment/Plan Assessment/Plan DKA -Gap is now closed. start 10units Levemir then 2hrs after change D/C. -SL IVF HTN Acute renal failure -Monitor Transfer to [facility] with tele. I will sign off after transfer please call with any questions or concerns. RAEANN VINES DO Aug 27, 2020 05:11
--- NOTE | 2020-08-27 06:16 | Diagnostic Imaging Report ---
EXAMINATION: Portable erect AP chest at 1243 AM INDICATION: Dyspnea FINDINGS: There does seem to be somewhat better inspiratory effort on this study than on the prior exam of 08/26/2020. Allowing for this technical factor, the heart size is stable. The right lung base also seems better aerated although I suspect there is still some residual atelectasis/infiltrate in this area. The left lung base is also generally clear. The mediastinum is not widened. The osseous structures are intact. This central venous catheter on the left seem stable in position. IMPRESSION: The appearance of the chest has improved somewhat as the lung bases do seem better aerated. Dictated by: Dictated on workstation # [id number]
[2020-08-27] MEDS: KCL 20 MEQ TAB (K-DUR) PO SCH (06:42)
[2020-08-27] MEDS: inSUlin ASPART (NovoLOG) 1 UNIT/0.01 ML (CHARGE PER UNIT) SC SCH ×4 (06:44→21:42)
[2020-08-27] MEDS ORDERED: POTASSIUM PHOSPHATE INJ 30 MM in NS (IVPB) 250 ML IV ONE (08:00)
[2020-08-27] MEDS: PANTOPRAZOLE 40 MG (PROTONIX) VIAL IV SCH (08:44)
--- NOTE | 2020-08-27 09:45 | Progress Note - Hospitalist ---
Subjective HPI/CC On Admission Date Seen by Provider: Aug 27, 2020 Time Seen by Provider: 08:45 Subjective/Events-last exam Patient is awake and alert and just finished going to the bathroom. He is much more with it today and converses more easily. He does have some concerns about giving himself insulin and following a diet. Will transfer to the floor and begin diabetic education on how to give his own injections and check blood sugars. His platelets dropped a little bit so we will hold his Lovenox since he is much more ambulatory Review of Systems Neurological: Weakness Focused Exam Lactate Level 08/25/20 16:30: Lactic Acid Level 2.17*H 08/25/20 19:40: Lactic Acid Level 3.49*H 08/25/20 22:30: Lactic Acid Level 1.31 Objective Exam Vital Signs Vital Signs Date Time Temp Pulse Resp B/P (MAP) Pulse Ox O2 Delivery O2 Flow Rate FiO2 08/27/20 08:58 36.6 08/27/20 08:00 97 Room Air 08/27/20 08:00 73 13 121/82 (95) 08/25/20 18:00 2.00 Capillary Refill : Less Than 3 Seconds General Appearance: No Apparent Distress, WD/WN HEENT: Normal ENT Inspection Neck: Normal Inspection, Supple Respiratory: Chest Non Tender, Lungs Clear, Normal Breath Sounds, No Accessory Muscle Use, No Respiratory Distress Cardiovascular: Regular Rate, Rhythm, No Gallop, No JVD, No Murmur Gastrointestinal: Normal Bowel Sounds, Soft Back: Normal Inspection Extremity: No Pedal Edema Neurologic/Psychiatric: Alert, Oriented x3, Depressed Affect Results/Procedures Lab Laboratory Tests 08/26/20 14:57 08/26/20 19:58 08/27/20 03:39 Patient resulted labs reviewed. Assessment/Plan Assessment and Plan Assess & Plan/Chief Complaint Diabetic ketoacidosis -resolved Type 2 diabetes historically now insulin requiring Fatigue and weight loss most likely secondary to diabetes [id number] Suppressed TSH -since exam is more consistent with hypothyroidism we will check a free T4 and prolactin level Drop in platelets we will hold Lovenox and increase ambulation Transfer to the floor , start diabetic teaching JUDITH CEJA MD Aug 27, 2020 09:45
[2020-08-27] MEDS: cefTRIAXone FOR IV USE 1,000 MG in WATER (STERILE) FOR INJECTION 10 ML IV SCH (15:16)
[2020-08-27 16:00] VITALS: BP 135/73
[2020-08-27] MEDS: CARVEDILOL 6.25 MG (COREG) TAB PO SCH (17:37)
[2020-08-27] MEDS: lisINopril 5 MG (PRINIVIL) TABLET PO SCH (17:37)
[2020-08-27] MEDS: SIMvastatin 40 MG (ZOCOR) TAB PO SCH (17:37)
[2020-08-27 20:00] VITALS: BP 118/67
[2020-08-27 23:16] VITALS: BP 109/59
[2020-08-28 04:51] VITALS: BP 134/67
[2020-08-28 05:30] LABS: BASOPHILS % (AUTO) 0 % (0-10); EOSINOPHILS % (AUTO) 1 % (0-10); HEMATOCRIT 32 % (40-54); HEMOGLOBIN 10.9 g/dL (13.3-17.7); LYMPHOCYTES # (AUTO) 0.9 10^3/uL (1.0-4.0); LYMPHOCYTES % (AUTO) 28 % (12-44); MEAN CORPUSCULAR HEMOGLOBIN 28 pg (25-34); MEAN CORPUSCULAR HGB CONC 34 g/dL (32-36); MEAN CORPUSCULAR VOLUME 84 fL (80-99); MEAN PLATELET VOLUME 10.4 fL (9.0-12.2); MONOCYTES # (AUTO) 0.4 10^3/uL (0.0-1.0); MONOCYTES % (AUTO) 12 % (0-12); NEUTROPHILS # (AUTO) 1.9 10^3/uL (1.8-7.8); NEUTROPHILS % (AUTO) 58 % (42-75); PLATELET COUNT 116 10^3/uL (130-400); WHITE BLOOD COUNT 3.3 10^3/uL (4.3-11.0)
[2020-08-28 05:56] LABS: CHLORIDE 105 MMOL/L (98-107); POTASSIUM 3.5 MMOL/L (3.6-5.0); SODIUM 139 MMOL/L (135-145)
[2020-08-28 05:57] LABS: CALCIUM 7.6 MG/DL (8.5-10.1)
[2020-08-28 05:58] LABS: GLUCOSE 184 MG/DL (70-105)
[2020-08-28 05:59] LABS: CARBON DIOXIDE 25 MMOL/L (21-32)
[2020-08-28 06:01] LABS: CREATININE SERUM 0.88 MG/DL (0.60-1.30); GFR ESTIMATED > 60; PHOSPHORUS 2.9 MG/DL (2.3-4.7)
[2020-08-28 06:02] LABS: BUN/CREATININE RATIO 9
[2020-08-28 06:04] LABS: MAGNESIUM 2.6 MG/DL (1.6-2.4)
[2020-08-28] MEDS: inSUlin ASPART (NovoLOG) 1 UNIT/0.01 ML (CHARGE PER UNIT) SC SCH ×3 (06:32→16:30)
[2020-08-28] MEDS: KCL 20 MEQ TAB (K-DUR) PO SCH (06:32)
[2020-08-28] MEDS: PANTOPRAZOLE 40 MG (PROTONIX) VIAL IV SCH (08:13)
[2020-08-28 08:23] VITALS: BP 145/71
[2020-08-28] MEDS ORDERED: INSU100I29 SQ (10:32)
[2020-08-28] MEDS ORDERED: LANC1COM6 MC (10:32)
[2020-08-28] MEDS ORDERED: PEN-53 MC (10:32)
[2020-08-28] MEDS ORDERED: INSU100I14 SQ (10:32)
[2020-08-28] MEDS ORDERED: BLOO-625 MC (10:32)
--- NOTE | 2020-08-28 10:33 | Discharge Summary ---
Discharge Summary Hospital Course Was the Problem List Reviewed?: Yes Hospital Course Date of Admission: Aug 25, 2020 at 11:39 Admission Diagnosis : Family Physician/Provider: Luis Alberto Melton MD Date of Discharge: 08/28/20 Discharge Diagnosis: DKA Hospital Course: Hospital course: Pt had a brief hospital course, he was admitted for SOB and acidosis, found to have DKA, placed on insulin drip and initiated a full work-up since his HgbA1C is 12 and he has been borderline diabetic in the past on Metformin. Overall he did very well, insulin was initiated along with diabetic education and all meds were sent to [facility], Dr. Melton will see him on 08/31 and Pt was discharged in improved condition. Labs and Pending Lab Test: Laboratory Tests 08/27/20 10:51: Glucometer 258H 08/27/20 16:10: Glucometer 218H 08/27/20 21:05: Glucometer 246H 08/28/20 05:19: White Blood Count 3.3L, Red Blood Count 3.87L, Hemoglobin 10.9L, Hematocrit 32L, Mean Corpuscular Volume 84, Mean Corpuscular Hemoglobin 28, Mean Corpuscular Hemoglobin Concent 34, Red Cell Distribution Width 14.5, Platelet Count 116L, Mean Platelet Volume 10.4, Immature Granulocyte % (Auto) 1, Neutrophils (%) (Auto) 58, Lymphocytes (%) (Auto) 28, Monocytes (%) (Auto) 12, Eosinophils (%) (Auto) 1, Basophils (%) (Auto) 0, Neutrophils # (Auto) 1.9, Lymphocytes # (Auto) 0.9L, Monocytes # (Auto) 0.4, Eosinophils # (Auto) 0.0, Basophils # (Auto) 0.0, Immature Granulocyte # (Auto) 0.0, Sodium Level 139, Potassium Level 3.5L, Chl oride Level 105, Carbon Dioxide Level 25, Anion Gap 9, Blood Urea Nitrogen 8, Creatinine 0.88, Estimat Glomerular Filtration Rate > 60, BUN/Creatinine Ratio 9, Glucose Level 184H, Calcium Level 7.6L, Phosphorus Level 2.9, Magnesium Level 2.6H Microbiology 08/25/20 Blood Culture - Preliminary, Resulted No growth 08/25/20 MRSA Screen - Final, Complete MRSA not isolated Home Meds Active Lancet 30G-Glucose Test Strip (Lancets/Blood Glucose Strips) 1 Each Combo..pkg Each [facility] Advocate Blood Glucose Monitor (Blood-Glucose Meter) 1 Each Each Each [facility] UD Advocate Pen Needle (Pen Needle, Diabetic) 1 Each Dis.needle Each [facility] ACHS Novolog Flexpen (Insulin Aspart) 300 Units/3 Ml Solution 4 Units SQ AC Levemir Flextouch (Insulin Detemir) 100 Unit/1 Ml Insuln.pen 10 Unit SQ BID Reported Tylenol Extra Strength (Acetaminophen) 500 Mg Tablet 500-1,000 Mg PO Q8H PRN Hydrocodone-Acetamin 5-325 mg (Hydrocodone/Acetaminophen) 1 Each Tablet 1 Tab PO Q4H PRN Carvedilol 6.25 Mg Tablet 6.25 Mg PO 1800 Lisinopril 2.5 Mg Tablet 2.5 Mg PO 1800 Simvastatin 40 Mg Tablet 40 Mg PO 1800 Metformin HCl 500 Mg Tablet 500 Mg PO 1800 Assessment/Pt Instructions Dr Melton 08/31/20 Discharge Planning: <30 minutes discharge planning Discharge Physical Examination Vital Signs Vital Signs Date Time Temp Pulse Resp B/P (MAP) Pulse Ox O2 Delivery O2 Flow Rate FiO2 08/28/20 08:23 36.9 80 18 145/71 (95) 98 Room Air 08/28/20 08:00 2.00 General Appearance: No Apparent Distress, WD/WN, Chronically ill Allergies: Coded Allergies: atorvastatin (Verified Allergy, Unknown, 08/25/20) prochlorperazine (Verified Allergy, Unknown, 08/13/20) Discharge Summary Date of Admission Aug 25, 2020 at 11:39 Date of Discharge Discharge Date: Aug 28, 2020 RAEGAN FRANCO DO Aug 28, 2020 10:33
--- NOTE | 2020-08-28 11:45 | Progress Note ---
BRIAN MOROCHO MED STUDENT 08/28/20 1145: Progress Note Hospital Course 08/25/20 Patient presents to ED due to SOB, N/V, and weakness. SOB developed over the previous 3 days and the other symptoms developing over the past couple months. Pt type 2 diabetic who does not take any medication for it. Pt notes high blood sugar readings at home. Pts blood sugar read 542 in ED. Other notable labs include: Lactic acid 5.21, Hgb A1c 12, and CRE 1.47. DKA protocol with insulin drip was conducted and pt was admitted to ICU. Dr. Roca placed central venous catheter for IV hydration and insulin drip. 08/26/20 Patient lethargic and still complaining of abdominal pain. Pt no longer in DKA and anion gap closed. Blood sugar continued to be monitored and medications adjusted accordingly. 08/27/20 Patient more alert than previously. Pt sugars becoming more controlled. Moved from ICU to 4th floor. Education provided regarding insulin. 08/28/20 Patient stable and blood sugars more manageable in the lower 200s/ upper 100s. Received education regarding insulin administration and blood sugar management. Pt interested in being discharged which Dr. Yu agreed following evaluation. Discharge medications were sent to [facility] in [place] as requested by pt. DAISY YU DO 08/29/20 0507: Supervisory-Addendum Brief Verification & Attestation Participated in pt care: history, MDM, physical Personally performed: exam, history, MDM, supervision of care Care discussed with: Medical Student Procedures: n/a Results interpretation: Verified all documentation Verification and Attestation of Medical Student E/M Service A medical student performed and documented this service in my presence. I reviewed and verified all information documented by the medical student and made modifications to such information, when appropriate. I personally performed the physical exam and medical decision making. Daisy Yu, Aug 29, 2020,05:07 BRIAN MOROCHO MED STUDENT Aug 28, 2020 11:45 DAISY YU DO Aug 29, 2020 05:07
[2020-08-28 12:00] VITALS: BP 137/71
[2020-08-28] MEDS: cefTRIAXone FOR IV USE 1,000 MG in WATER (STERILE) FOR INJECTION 10 ML IV SCH (15:13)
[2020-08-28 17:00] VITALS: BP 148/79
== END 2020-08-28 17:05 | disposition home or self-care (01) | DRG 638 ==
LOC: EDUNIT# 08:00 → ER FS 08:03 → ICU 11:39 → 4TH 08-27 10:33
PROVIDERS: ADMIT Family Medicine; ATTEND Internal Medicine
PROC: 02HV33Z Insertion of Infusion Device into Superior Vena Cava, Percutaneous Approach (ICD-10-PCS; principal; 2020-08-25)
DX: E11.10 Type 2 diabetes mellitus with ketoacidosis without coma (principal); E87.1 Hypo-osmolality and hyponatremia; N17.9 Acute kidney failure, unspecified; E78.00 Pure hypercholesterolemia, unspecified; I10 Essential (primary) hypertension; E86.0 Dehydration; E87.5 Hyperkalemia; Z87.891 Personal history of nicotine dependence; Z79.4 Long term (current) use of insulin
CPT/HCPCS: 36415; 71045; 80048; 80053; 81000; 82010; 82274; 82805; 82962; 83036; 83605; 83690; 83735; 83880; 84100; 84146; 84439; 84443; 84484; 85025; 85027; 87040; 87081; 93005; 94760

== ENCOUNTER → 2022-11-07 | Outpatient (CLI) | payer MEDICARE, OTHER ==
[~2022-11-07] MED LIST changes: +ACET-2267 PO; +BLOO-625 MC; +CARV6.252 PO; +INSU100I14 SQ; +INSU100I30 SQ; +LANC1COM6 MC; +LISI2.5T13 PO; +METF-397 PO; +PEN-53 MC; +SIMV40TA25 PO
== END ==
LOC: CARDFS 09:34
PROVIDERS: ATTEND Internal Medicine Cardiovascular Disease
DX: I11.9 Hypertensive heart disease without heart failure (principal); I25.10 Atherosclerotic heart disease of native coronary artery without angina pectoris
CPT/HCPCS: 93306

== ENCOUNTER → 2022-11-21 | Outpatient (CLI) | payer MEDICARE, OTHER ==
[~2022-11-21] VITALS: Ht 172 cm; Wt 91.0 kg
[~2022-11-21] MED LIST changes: +CATHETER FLUSH 10 ML SYR IVP PRN
[2022-11-21 08:03] VITALS: BP 145/81
--- NOTE | 2022-11-21 12:26 | Cardiology Stress Test Report ---
Stress Test Report Date of Procedure/Referring: Date of Procedure: Nov 21, 2022 PCP Gunnar Melton MD Admitting Physician Admitting Physician: Attending Physician: Black Rainey MD Baseline Heart Rate: 65 Baseline Blood Pressure: Blood Pressure Systolic: 145 Blood Pressure Diastolic: 81 Vital Signs Date Time Temp Pulse Resp B/P (MAP) Pulse Ox O2 Delivery O2 Flow Rate FiO2 11/21/22 08:03 65 145/81 (102) Baseline Vital Signs Vital Signs Date Time Temp Pulse Resp B/P (MAP) Pulse Ox O2 Delivery O2 Flow Rate FiO2 11/21/22 08:03 65 145/81 (102) Baseline EKG: Baseline EKG: NSR Summary: After explaining the procedure and details to the patient, he signed the consent and was brought to the stress nuclear laboratory. Patient exercised on standard Jose Alejandro protocol, EKG, heart rate and blood pressure were monitored continuously, resting and stress doses of radio tracer were injected, imaging was acquired and reviewed in the short axis, horizontal long axis and vertical long axis views Patient was able to exercise for a total of 7 minutes on Jose Alejandro protocol, METs 8.5 Maximum heart rate 129 Maximum blood pressure 265/80 Stress EKG, Minimal nondiagnostic changes Recovery EKG, Return to baseline TID: 1.18 SSS: 0 SDS: 0 EF: 54 Conclusion: Good exercise tolerance for 7 minutes on standard Jose Alejandro protocol, 8.5 METS achieving 87% of maximal expected heart rate Appropriate heart rate response to exercise with hypertensive response to exercise with peak blood pressure 265/80 return to baseline during recovery Minimal nondiagnostic EKG changes with exercise return to baseline during recovery No ischemia or infarction noted on SPECT images Normal left ventricular size, ejection fraction 54% Copy Copies To 1: GUNNAR EMLTON MD, BASHAR J MD Nov 21, 2022 12:26
== END ==
LOC: CARD 07:01
PROVIDERS: ATTEND Internal Medicine Cardiovascular Disease
DX: R07.9 Chest pain, unspecified (principal)
CPT/HCPCS: 78452; 93017; A9502